=== PATIENT | female | born 1965 | race Two or more races ===

== ENCOUNTER 2019-01-13 21:27 | Emergency (ER) | payer MEDICAID ==
[~2019-01-13] VITALS: Ht 157.5 cm; Wt 88.9 kg
[2019-01-13 21:46] VITALS: Ht 157.5 cm; Wt 88.9 kg
[2019-01-13 23:27] LABS: BASOPHIL % 0.3 % (0-2); PLATELET COUNT 257 x10^3mcL (130-400)
[2019-01-13 23:28] LABS: RED CELL DISTRIBUTION WIDTH 14.8 % (11.5-14.5)
[2019-01-13 23:40] LABS: CALCIUM 9.2 mg/dL (8.5-10.1); CARBON DIOXIDE 32.7 mmol/L (21-32); CHLORIDE SERUM 103 mmol/L (98-107); GFR1 > 60 mL/min; GLUCOSE SERUM 156 mg/dL (74-106); POTASSIUM SERUM 3.9 mmol/L (3.5-5.1); SODIUM SERUM 142 mmol/L (136-145)
[2019-01-13 23:45] LABS: ALBUMIN 3.6 g/dL (3.4-5.0); ALKALINE PHOSPHATASE 126 U/L (46-116); ALT/SGPT 26 U/L (14-59); AST/SGOT 15 U/L (15-37); BILIRUBIN TOTAL 0.2 mg/dL (0.20-1.00); LIPASE 102 IU/L (73-393); TOTAL PROTEIN, SERUM 7.6 g/dL (6.4-8.2)
[2019-01-14 00:42] VITALS: BP 145/84
== END 2019-01-14 00:42 | disposition home or self-care (01) ==
LOC: ED 21:27
PROVIDERS: Emergency Medicine
DX: K20.9 Esophagitis, unspecified (principal); K92.2 Gastrointestinal hemorrhage, unspecified; T45.1X5A Adverse effect of antineoplastic and immunosuppressive drugs, initial encounter; R11.10 Vomiting, unspecified; I10 Essential (primary) hypertension; E78.5 Hyperlipidemia, unspecified; Y92.89 Other specified places as the place of occurrence of the external cause
CPT/HCPCS: C9113; G0480; J2405; Q0092